=== PATIENT | female | born 1995 | race Caucasian/White ===

== ENCOUNTER 2016-11-07 15:06 | Emergency (ER) | payer OTHER ==
[~2016-11-07] VITALS: Ht 160 cm; Wt 60.8 kg
[2016-11-07 15:11] VITALS: TEMP 36.7; Ht 160 cm; Wt 60.8 kg
[2016-11-07] MEDS ORDERED: BCPILLS PO (15:43)
[2016-11-07] MEDS ORDERED: MULT-513 PO (15:43)
[2016-11-07] MEDS ORDERED: PRED20TA PO (15:43)
[2016-11-07] MEDS ORDERED: FLUT0.15 NAE (16:11)
--- NOTE | 2016-11-07 16:11 | EMERGENCY ROOM VISIT NOTE ---
ED Visit Note First contact with patient: 15:15 Chief Complaint: Ear Clogged/Loss of Hearing History of Present Illness: Patient is a 21-year-old female who presents to the emergency departments afternoon for evaluation of difficulty with hearing and a clogged sensation to the RIGHT-sided ear. The patient reports that approximately one week ago she awoke with a clogging sensation and muffled hearing to the RIGHT ear. She was seen at a walk-in clinic and was provided prednisone for her symptoms. She admits to scratching a tear which seemed to make things worse. She has 2 days remaining of her Medrol Dosepak, but reports no improvement. She reports that she would like to have her ear drained. She would be unable to go another week with the symptoms. She reports no history of ENT symptoms in the past. She denies any headaches, dizziness, lightheadedness, nausea, vomiting, fevers, chills, slurred speech, facial droop , unilateral weakness/numbness, tinnitus, or neck pain/stiffness. She rates her current discomfort as a 0/10. She has tried no [id number] medications for her symptoms. Medications: Reviewed and discussed with the patient. Allergies: Amoxicillin PMH: No pertinent past medical history. SHx: Patient is a 21-year-old [employer] student who lives with roommates. ROS: All pertinent positive and negative review of systems are appropriately documented in the History of Present Illness. Physical Exam: VITAL SIGNS - Vital signs and nursing notes were reviewed. GENERAL - Well nourished, well developed 21-year-old female in no acute distress. Pt communicates well with provider and answers questions appropriately. SKIN - Without rash. HEAD - NC/AT with no obvious deformities. EYES - PERRL with EOMI bilaterally. Sclera without injection. Palpebral conjunctiva pink and moist. EARS - No deformities of external structures noted on gross examination bilaterally. No pain elicited with palpation of the tragus bilaterally. External auditory canals with discharge or otorrhea. Tympanic membranes pearly colud without retraction or bulging. Trace amount of fluid noted in the inferior portion of the RIGHT tympanic membrane. No bubbles, bullae, or purulent material appreciated. NOSE - Midline and without cyanosis. No purulent drainage noted. Nasal mucosa without mucus discharge. MOUTH/OROPHARYNX - Without perioral cyanosis. Buccal mucosa pink and moist and without leukoplakia. Tongue midline with equal elevation of palate bilaterally. No tonsillar hypertrophy, erythema, or exudates noted. Good dentition noted. NECK - Neck with FROM. Supple to palpation. No lymphadenopathy noted. No nuchal rigidity. ED Course: Patient was seen and evaluated by myself. I had a lengthy discussion with the patient regarding her ongoing symptoms. She was encouraged to continue the course of prednisone. In addition, she was offered a prescription for Flonase as well as educated on utilizing [id number]-[id number]-qwepmpk medications including decongestants for her symptoms. She was offered ENT contact information locally for follow-up. Patient reports "I have an ENT at home and we'll just see them when I go home". I do not feel that antibiotics or emergent intervention is necessary at this point. The patient will follow-up with her ENT upon arrival home. She will return for any changing/worsening symptoms. Patient discharged home afebrile and in good condition. In the evaluation and treatment of this patient, the following differential diagnoses were considered: Otitis media, otitis externa, tympanic membrane perforation, bullous myringitis, cholesteatoma, acoustic neuroma, glioma, amongst others. Impression: RIGHT Ear Clogged /Loss of Hearing Discharge Instructions: You have been seen in the emergency department today for residual fluid in the RIGHT ear. Please continue the entire course of prednisone as previously prescribed. Utilizing nasal steroids as discussed. Continue [id number] medications as discussed. Follow-up with ENT as discussed. Return for any changing or worsening symptoms. Current/Historical Medications Scheduled Control Pills ( Control Pills), 1 TAB PO DAILY Fluticasone Propionate (Nasal) (Flonase Allergy Relief), 2 SPRAYS SOPHY DAILY Multivitamins/Minerals (Mvi With Minerals), 1 TAB PO DAILY Prednisone (Prednisone), 20 MG PO DAILY Allergies Coded Allergies: Amoxicillin (Verified Adverse Reaction, Intermediate, ear infection, constipation, 11/07/16) Vital Signs Date Time Temp Pulse Resp B/P Pulse Ox O2 Delivery O2 Flow Rate FiO2 11/07/16 16:19 88 17 126/71 100 11/07/16 15:11 36.7 88 17 126/71 100 Room Air Departure Information Impression Primary Impression: Fluid level behind tympanic membrane of right ear Dispostion Home / Self-Care Condition GOOD Prescriptions Fluticasone Propionate (Nasal) (Flonase Allergy Relief) 50 Mcg/Act Spr 2 SPRAYS SOPHY DAILY for 30 Days, #1 BTL Prov: Олег Lunsford, JAKUB 11/07/16 Referrals No Doctor, Assigned (PCP) Patient Instructions [facility] Additional Instructions You have been seen in the emergency department today for residual fluid in the RIGHT ear. Please continue the entire course of prednisone as previously prescribed. Utilizing nasal steroids as discussed. Continue [id number] medications as discussed. Follow-up with ENT as discussed. Return for any changing or worsening symptoms.
[2016-11-07 16:19] VITALS: BP 126/71; PULSE 88; O2SAT 100
== END 2016-11-07 16:19 | disposition home or self-care (01) ==
LOC: C.EDB 15:09 → C.EDD 16:19
DX: H94.81 Other specified disorders of right ear in diseases classified elsewhere (principal); Z79.3 Long term (current) use of hormonal contraceptives